=== PATIENT | female | born 1980 | race Two or more races ===

== ENCOUNTER 2017-01-10 05:52 | Emergency (ER) | payer BC, OTHER ==
[2017-01-10 06:00] VITALS: BP 134/86; PULSE 82; RESP 20; TEMP 98.2; O2SAT 97
--- NOTE | 2017-01-10 06:15 | EDPHY ---
H & P Stated Complaint: redness on calf after torn muscles last week Time Seen by Provider: 01/10/17 06:12 HPI/ROS: Chief Complaint: Red spot on calf and tight forehead muscles HPI: 36-year-old woman presenting complaining of a red spot on the back of her calf is concerned that she might have a DVT. Patient states that she tore her calf muscle week ago was seen by her primary care physician for this. Patient has been resting, icing and elevating. She has not had any pain for at least 4 5 days. Today she was taking a shower no sort spot in the back of her right calf. She has not have any pain or tenderness. No fevers or chills. There is no pain with walking. Does not feel that her legs particularly swollen. Patient also states that this morning it feels like the skin across her forehead is feeling tighter than usual. Has not had any headache. Has not used any new lotions or personal care products. No fevers or chills. No vision or hearing changes. No nausea or vomiting. ROS: 10 point Review of Systems is negative except as noted in the HPI. PMH: None Social History: No smoking, no alcohol, no recreational drug use Family History: non-contributory Physical Exam: Gen: Awake, Alert, No Distress HEENT: Nose: no rhinorrhea Eyes: PERRLA, EOMI Mouth: Moist mucosa Neck: Supple, no JVD Chest: nontender, lungs clear to auscultation Heart: S1, S2 normal, no murmur Abd: Soft, non-tender, no guarding Back: no CVA tenderness, no midline tenderness Ext: no edema, bilateral calf is measure the same circumference. There is no tenderness. They are soft. She has full range of motion without pain. There is a small area of ecchymosis about 3 cm in diameter at the back of her lower right leg. Is not warm to touch. It is not tender. Skin: no rash Neuro: CN II-XII intact, Sensation grossly intact, Strength 5/5 in bilateral upper and lower extremities - Personal History LMP (Females 10-55): Irregular - Medical/Surgical History Hx Asthma: No Hx Chronic Respiratory Disease: No Hx Diabetes: No Hx Cardiac Disease: No Hx Renal Disease: No Hx Cirrhosis: No Hx Alcoholism: No Hx HIV/AIDS: No Hx Splenectomy or Spleen Trauma: No Other PMH: PCOS? - Social History Smoking Status: Never smoked Constitutional: Initial Vital Signs Temperature (C) 36.8 C 01/10/17 05:57 Heart Rate 82 01/10/17 05:57 Respiratory Rate 20 01/10/17 05:57 Blood Pressure 134/86 H 01/10/17 05:57 O2 Sat (%) 97 01/10/17 05:57 O2 Delivery Mode Room Air Allergies/Adverse Reactions: cortisone Allergy (Verified 01/10/17 05:55) Home Medications: Medication Instructions Recorded Naproxen 01/10/17 Medical Decision Making ED Course/Re-evaluation: Patient presenting with calf lesion and tightness of her forehead. There is no evidence of DVT at this time. She has symmetrical calves which measure the same circumference. She is nontender. There is a small ecchymosis but no significant erythema. Is not warm to the touch. She has no pain with range of motion. Third ecchymosis is likely secondary to the torn muscle for a week ago but there is no acute injury at this time and she is completely asymptomatic. As far as for her goes suspect she might developing an early tension headache out of concern for her leg. She is completely neurologically intact, has no tenderness, is a normal exam. Patient has been reassured and instructed to follow up with primary care physician for any concerns. She will keep an eye on her calf anything worsens she will follow-up for further evaluation. Departure - Departure Disposition: Home, Routine, Self-Care Clinical Impression: Ecchymosis, Tension headache Condition: Good Instructions: Ecchymosis (ED), Tension Headache (ED) Additional Instructions: If the redness on your leg continues to spread, gets painful, or you notice worsening swelling in your calf go to your primary care physician for further evaluation. You may take ibuprofen and acetaminophen as needed for headache. Return to the emergency depart for increasing pain, shortness of breath, fevers , chills, or any other concerns. Referrals: Kary Nagel MD [Primary Care Provider] - As per Instructions
== END 2017-01-10 06:15 | disposition home or self-care (01) ==
DX: M79.81 Nontraumatic hematoma of soft tissue (principal); G44.209 Tension-type headache, unspecified, not intractable